=== PATIENT | female | born 1965 | race Caucasian/White ===

== ENCOUNTER 2017-02-21 14:32 | Emergency (ER) | payer BC, OTHER ==
[~2017-02-21] VITALS: Ht 170.2 cm; Wt 93.0 kg
[~2017-02-21 14:32] MED LIST: ADDE20TA PO; CEPH500C3 PO; GUAISOL PO; PRED50TA PO; VENTAER INH; ZOLO20CO PO
[2017-02-21 14:40] VITALS: BP 138/87; PULSE 97; RESP 16; TEMP 98.6; O2SAT 96
[2017-02-21] MEDS ORDERED: ZOLO25TA PO (14:48)
[2017-02-21] MEDS ORDERED: TOPI1CAP25 PO (14:48)
[2017-02-21] MEDS ORDERED: ADDE20 PO (14:48)
[2017-02-21] MEDS ORDERED: IMIT25TA PO (14:48)
[2017-02-21] MEDS ORDERED: IBUP800T23 PO (15:13)
--- NOTE | 2017-02-21 15:13 | PD ---
HPI Chief Complaint: Musculoskeletal Complaint Time Seen by Provider: 14:50 Travel History International Travel<30 days: No Contact w/Intl Traveler<30days: No Traveled to known affect area: No History of Present Illness HPI 51-year-old female presents emergency department for evaluation of right wrist and thumb pain for approximately a week. She denies trauma. She reports she does repetitive motion and heavy lifting at work. She denies trauma. No numbness or tingling extremity. No Decreased strength. Patient has full range of motion of the fingers. Pain with extension and flexion of the thumb. No bony point tenderness. PFSH Past Medical History Cancer: No Cardiovascular Problems: No Diabetes: No Diminished Hearing: No Endocrine: No Glaucoma: No Genitourinary: Yes (DROPPED BLADDER) Hepatitis: No Hiatal Hernia: No Hypertension: No Immune Disorder: No Musculoskeletal: No Neurologic: No Psychiatric: Yes (DEPRESSION; ATTENTION DEFICIT DISORDER) Reproductive: No Respiratory: No Thyroid Disease: No ?: Not Tubal Ligation: Yes Past Surgical History Abdominal Surgery: No Body Medical Devices: N/A Cardiac Surgery: No Ear Surgery: No Endocrine Surgery: No Eye Surgery: No Genitourinary Surgery: Yes (BLADDER SLING) Gynecologic Surgery: Yes (TUBAL LIGATION) Joint Replacement: No Oral Surgery: No Pacemaker: No Thoracic Surgery: No Other Surgery: Yes Social History Alcohol Use: Yes (OCCASIONALLY) Tobacco Use: Yes (1 PK WEEK) Substance Use: No Allergies-Medications (Allergen,Severity, Reaction): Coded Allergies: No Known Allergies (Verified , 02/21/17) Reported Meds & Prescriptions Reported Meds & Active Scripts Active Ibuprofen 800 Mg Tab 800 Mg PO Q8H PRN Reported Trokendi Xr (Topiramate) 25 Mg Cap 25 Mg PO DAILY Imitrex (Sumatriptan Succinate) 25 Mg Tab 25 Mg PO ONCE PRN If a satisfactory response has not been obtained at 2 hours, a second dose may be administered Zoloft (Sertraline HCl) 25 Mg Tab 25 Mg PO DAILY Adderall (Amphetamine-Dextroamphetamine) 20 Mg Tab 20 Mg PO DAILY Avoid late evening doses. Space doses at least 4 to 6 hours if more than once/day dosing. Review of Systems Except as stated in HPI: all other systems reviewed are Neg Physical Exam Narrative GENERAL: Well-nourished, well-developed patient. SKIN: Focused skin assessment warm/dry. No ecchymosis. No cellulitis. HEAD: Normocephalic. EYES: No scleral icterus. No injection or drainage. NECK: Supple, trachea midline. MUSCULOSKELETAL: No cyanosis, or edema. Patient has pain with extension and flexion of the thumb. Mild tenderness along the medial aspect of the base of the thumb. No bony point tenderness. No swelling. Extremities neurovascularly intact. Data Data Last Documented VS Vital Signs Date Time Temp Pulse Resp B/P Pulse Ox O2 Delivery O2 Flow Rate FiO2 02/21/17 14:40 98.6 97 16 138/87 96 Orders Splint Or Brace Apply/Monitor (02/21/17 15:14) Ketorolac Inj (Toradol Inj) (02/21/17 15:15) Wrist, Complete ([id number]) (02/21/17 ) [facility] Medical Decision Making Medical Screen Exam Complete: Yes Emergency Medical Condition: Yes Differential Diagnosis Tendinitis, carpal tunnel, thumb sprain Narrative Course 51-year-old female who presents emergency department for evaluation of nontraumatic right thumb pain. Patient's physical exam is consistent with tendinitis of the right thumb. There is no bony point tenderness or deformity or swelling. Thumb spica splint will be applied. Toradol shot. Discharge home with NSAIDs. Diagnosis Primary Impression: Tendinitis of thumb Referrals: Primary Care Physician Departure Forms: Tests/Procedures, Work Release Special Instructions: NO HEAVY LIFTING X 1 WEEK. Scripts Ibuprofen 800 Mg [id number] Mg PO Q8H PRN (Pain/Inflammation) #30 TAB Prov:Clementina Becker 02/21/17 Disposition: 01 DISCHARGE HOME Condition: Stable Clementina Becker Feb 21, 2017 15:13
[2017-02-21] MEDS ORDERED: KETOROLAC TROMETHAMINE 60 MG/2 ML (IM) VIAL IM ONE (15:15)
--- NOTE | 2017-02-21 15:55 | RADHPO ---
EXAM DATE/TIME: 02/21/2017 15:37 [place] COMPARISON: No previous studies available for comparison. INDICATIONS : Right wrist pain MEDICAL HISTORY : None. SURGICAL HISTORY : None. ENCOUNTER: Initial ACUITY: 1 week PAIN SCORE: 10/10 LOCATION: Right wrist FINDINGS: Three view examination of the right wrist demonstrates no soft tissue swelling, dislocation, or fract ure. The carpal bones are in normal alignment. The joint spaces are maintained. Bony mineralizatio n is normal. CONCLUSION: No acute fracture. Ozzy Reyes MD on February 21, 2017 at 15:53 Board Certified Radiologist. This report was verified electronically.
== END 2017-02-21 16:31 | disposition home or self-care (01) ==
LOC: PHEFT 14:32
DX: M77.8 Other enthesopathies, not elsewhere classified (principal); M25.531 Pain in right wrist; Z72.0 Tobacco use; Z87.448 Personal history of other diseases of urinary system; Z86.59 Personal history of other mental and behavioral disorders
CPT/HCPCS: 73110; 96372; 99284; J1885; L3808